=== PATIENT | female | born 2000 | race Caucasian/White ===

== ENCOUNTER 2024-05-11 17:24 | Emergency (ER) | payer OTHER, SELFPAY ==
[2024-05-11 17:42] VITALS: PULSE 97; RESP 20; TEMP 36.8; O2SAT 98
--- NOTE | 2024-05-11 18:03 | ED.NAVMDI ---
HPI - Nausea/Vomiting/Diarrhea General Chief complaint: Nausea/Vomiting/Diarrhea Stated complaint: TIRED/NAUSEA/VOMITING/DIARRHEA/HEADACHE Time Seen by Provider: 05/11/24 17:50 Source: patient Mode of arrival: ambulatory Limitations: no limitations History of Present Illness HPI Narrative: 23-year-old female presents with complaint of nausea, vomiting, diarrhea, fatigue, headache for 3 to 4 days. Symptoms improving. Vomited once today. Is able to keep down food and water. Patient wants flu test to make sure she does not spread to family. All systems reviewed and negative except as noted above. Related Data Home Medications ?Medication ?Instructions ?Recorded ?Confirmed ?Last Taken ?Type clonazepam 1 mg tablet mg 05/11/24 Unknown History dextroamphetamine-amphetamine 5 mg 05/11/24 Unknown History tablet Allergies Allergy/AdvReac Type Severity Reaction Status Date / Time No Known Allergies Allergy Verified 05/11/24 17:51 Review of Systems Review of Systems: CONSTITUTIONAL: Denies fever, chills, or sweats. Reports fatigue. EYES: Denies visual changes, redness, or discharge. ENT: Denies rhinorrhea, congestion, sore throat, or otalgia. CARDIOVASCULAR: Denies chest pain, palpitations, or edema. RESPIRATORY: Denies cough or dyspnea. GASTROINTESTINAL: Denies abdominal pain. Reports nausea, vomiting, or diarrhea. GENITOURINARY: Denies dysuria or hematuria. SKIN: Denies rash or itching. MUSCULOSKELETAL: Denies back pain, joint pain, or myalgia. NEUROLOGIC: Reports headache. Denies numbness, or weakness. PSYCHIATRIC: Denies anxiety or depression. All other systems reviewed are negative, except as documented in HPI. PMFSH Comments At time of signature, agree with nursing past medical, surgical, social and family history. There is no relevant family history pertinent to the presenting complaint. Exam Narrative: GENERAL: This is a well-nourished, well-developed patient, in no apparent distress. HEAD: normocephalic, atraumatic. EYES: PERRL. Sclera clear/white. Vision is grossly intact. EARS: External ears normal, auditory canals clear and without drainage, TMs normal without perforation. Hearing grossly intact. NOSE: External nose normal with no obvious nasal discharge, nares without redness, no rhinorrhea. THROAT: Mucous membranes moist, posterior pharynx clear. NECK: Neck supple, non-tender without lymphadenopathy, masses or thyromegaly. CARDIOVASCULAR: Regular rate and rhythm without murmurs, gallops, or rubs. RESPIRATORY: Clear to auscultation. Breath sounds equal bilaterally. No wheezes, rales, or rhonchi. GASTROINTESTINAL: Abdomen soft, non-tender, nondistended. Bowel sounds are active. No hepato-splenomegaly, or palpable masses. No guarding. SKIN: warm, Dry, intact with no suspicious lesions or rash, good texture and turgor. NEURO: awake, alert, and oriented to person, place and time. There were no obvious focal neurologic abnormalities. EXTREMITIES: No joint tenderness, effusion, or edema noted. Course Course Level of Care: Express Care Visit Vital Signs Vital signs: Vital Signs Temperature 36.8 C 05/11/24 17:42 Pulse Rate 97 05/11/24 17:42 Respiratory Rate 20 05/11/24 17:42 Pulse Oximetry 98 05/11/24 17:42 Oxygen Delivery Room Air 05/11/24 17:42 Temperature 36.8 C 05/11/24 17:42 Pulse Rate 97 05/11/24 17:42 Respiratory Rate 20 05/11/24 17:42 Blood Pressure 126/79 05/11/24 18:06 Pulse Oximetry 98 05/11/24 17:42 Oxygen Delivery Room Air 05/11/24 17:42 Reviewed MDM - Nausea/Vomiting/Diarrhea MDM Narrative Medical decision making narrative: COVID and influenza test negative. Patient is well-appearing, nontoxic. Able to keep down water. Please be advised this is a medical document. It is intended for [id number] communication. It is written in medical language and may contain unfamiliar abbreviations or verbiage. Medical documents are intended to carry relevant information, facts as evident, and the clinical opinion of the practitioner at the time of the encounter. This report may have been done utilizing a voice recognition system. Attempts have been made to correct errors. However, there may be uncorrected grammatical, spelling, and recognition errors present. The file time of this note does not necessarily represent the time of service. Differential Diagnosis Differential diagnosis: Likely gastroenteritis Lab Data Labs: Lab Results 05/11/24 Range/Units 18:19 POC Influenza A Ag Negative (Negative) POC Influenza B Ag Negative (Negative) POC SARS CoV-2 Ag Negative (Negative) Discharge Plan Discharge Clinical Impression: Viral gastroenteritis Patient Disposition: Home, Self-Care Condition: Stable Instructions: Gastroenteritis (ED) Additional Instructions: Your influenza test was negative today. Your symptoms are viral and may last 7-10 days. Take Zofran as prescribed to treat nausea and vomiting. Take Tylenol or ibuprofen every 6-8 hours as needed for pain and fever. Drink at least 64 oz of water a day. Follow-up with your doctor if symptoms are not improving. Patient Language: Persian Prescriptions: New ondansetron 4 mg tablet,disintegrating 4 mg PO Q8H PRN (Reason: nausea and vomiting) Qty: 12 0RF No Action clonazepam 1 mg tablet dextroamphetamine-amphetamine 5 mg tablet Follow-up/Referrals: UNKNOWN,DOCTOR [Primary Care Provider] - Time of Disposition: 18:28
[2024-05-11 18:06] VITALS: BP 126/79
[2024-05-11 18:20] LABS: EDCOVIDSCREEN Negative (Negative); EDINFLUASCREEN Negative (Negative); EDINFLUBSCREEN Negative (Negative)
--- NOTE | 2024-05-11 18:29 | PC.NURSE ---
1818- RN to RN report received from Monica Back
== END 2024-05-11 18:33 | disposition home or self-care (01) ==
PROVIDERS: Emergency Provider Nurse Practitioner Family
DX: A08.4 Viral intestinal infection, unspecified (principal); Z20.822 Contact with and (suspected) exposure to COVID-19
CPT/HCPCS: 87426; 87804; 99203; G0463